=== PATIENT | female | born 1985 | race Caucasian/White ===

== ENCOUNTER → 2016-11-10 | Outpatient (CLI) | payer BC ==
[~2016-11-10] MED LIST: ACET50TA PO; IBUP80TA PO; VITAPRTA PO
[2016-11-10 13:43] LABS: BASO % 0.3 % (0.0-1.0); EOS # 0.1 K/mm3 (0.0-0.50); EOS % 1.8 % (0.0-3.0); LARGE UNSTAINED CELL # 0.1 K/mm3 (0.0-0.4); LARGE UNSTAINED CELL % 1.1 % (0.0-4.0); LYMPH # 1.3 K/mm3 (1.5-6.5); LYMPH % 18.5 % (24.0-44.0); MEAN CORPUSCULAR HEMOGLOBIN 28.6 pg (27.0-33.0); MEAN CORPUSCULAR HGB CONC 33.7 g/dl (32.0-36.5); MONO # 0.2 K/mm3 (0.0-0.8); MONO % 2.5 % (0.0-5.0); NEUTROPHILS # 5.4 K/mm3 (1.8-7.7); NEUTROPHILS % 75.8 % (36.0-66.0); PLATELET COUNT, AUTOMATED 243 k/mm3 (150-450); RED CELL DISTRIBUTION WIDTH 13.1 % (11.5-14.5); WHITE BLOOD COUNT 7.1 K/mm3 (4.0-10.0)
[2016-11-10 13:45] LABS: CONTROL LINE INT CTR LINE PRESENT; HIV SCRN NEGATIVE (NEGATIVE); HIV SCRN1 NEGATIVE (NEGATIVE)
[2016-11-11 10:27] LABS: HBsAg Prenatal NEGATIVE (NEGATIVE)
== END ==
LOC: M LAB 11:53
PROVIDERS: ATTEND Advanced Practice Midwife
DX: Z34.81 Encounter for supervision of other normal pregnancy, first trimester (principal)

== ENCOUNTER → 2017-01-30 | Outpatient (CLI) | payer BC ==
--- NOTE | 2017-01-31 03:21 | REP ---
Clinical: Anatomical evaluation. Comparison: None . Findings: Examination demonstrates a single live intrauterine in breech presentation. motion is identified by technologist. Placenta is noted anteriorly and grade zero without evidence for placenta previa or abruption. Amniotic fluid volume is normal. Cervix measures 3.4 cm in length and appears closed. No evidence for nuchal cord. Gestational age by LMP 21 weeks 2-day with LINDA date 06/10/2017 . Gestational age by current measurements 21 weeks 4-day with LINDA is 06/08/2017 . FHR equals 150 beats per minute. BPD 5.1 cm 21 weeks 2 days HC 18.1 cm 21 weeks 2 days AC 17.9 cm 22 weeks 6 days FL 3.8 cm 22 weeks 2 days HL 3.8 cm 22 weeks 1 day HC/AC ratio 1.06 Estimated weight 501 grams ( 85th percentile). Anatomical assessment demonstrates normal structures including cranium, choroid plexus, cavum, cerebellum/posterior fossa, facial features, lungs, four-chamber heart/ventricular outflow tracts, diaphragm, stomach, cord insertion/three-vessel cord, kidneys/bladder, spine, and extremities. Impression: Single live intrauterine in breech presentation demonstrating appropriate interval growth. Anatomical assessment is complete and normal. Signed by Connor Batista MD 01/31/2017 03:13 A
== END ==
LOC: M SMT 10:58
PROVIDERS: ATTEND Obstetrics & Gynecology
DX: Z36 Encounter for antenatal screening of mother (principal); Z3A.21 21 weeks gestation of pregnancy

== ENCOUNTER → 2017-03-20 | Outpatient (CLI) | payer BC ==
[2017-03-20 13:47] LABS: BASO % 0.3 % (0.0-1.0); EOS # 0.2 K/mm3 (0.0-0.50); EOS % 2.6 % (0.0-3.0); LARGE UNSTAINED CELL # 0.1 K/mm3 (0.0-0.4); LYMPH # 1.3 K/mm3 (1.5-6.5); LYMPH % 18.5 % (24.0-44.0); MEAN CORPUSCULAR HEMOGLOBIN 28.6 pg (27.0-33.0); MEAN CORPUSCULAR HGB CONC 33.9 g/dl (32.0-36.5); MEAN CORPUSCULAR VOLUME 84.1 fl (80.0-96.0); MONO # 0.3 K/mm3 (0.0-0.8); NEUTROPHILS # 4.9 K/mm3 (1.8-7.7); NEUTROPHILS % 73.6 % (36.0-66.0); PLATELET COUNT, AUTOMATED 261 k/mm3 (150-450); RED CELL DISTRIBUTION WIDTH 13.2 % (11.5-14.5); WHITE BLOOD COUNT 6.6 K/mm3 (4.0-10.0)
== END ==
LOC: M SMT 09:25
PROVIDERS: ATTEND Advanced Practice Midwife
DX: Z34.83 Encounter for supervision of other normal pregnancy, third trimester (principal)

== ENCOUNTER → 2017-05-16 | Outpatient (REF) | payer BC | LOC: M LAB REF 13:00 | PROVIDERS: ATTEND Obstetrics & Gynecology | DX: Z34.83 Encounter for supervision of other normal pregnancy, third trimester (principal) ==

== ENCOUNTER 2017-06-10 00:22 | Inpatient (IN) | payer BC ==
[~2017-06-10] VITALS: Ht 162.6 cm; Wt 72.0 kg
[2017-06-10] MEDS ORDERED: LR 1,000 ML IV SCH (00:42)
[2017-06-10] MEDS ORDERED: PENICILLIN G POTASSIUM IV 5 MU in D5W MINI-BAG PLUS 100 ML IV STA (00:42)
[2017-06-10] MEDS ORDERED: LACTATED RINGER'S 1000 ML IV STA (00:42)
[2017-06-10 01:10] LABS: MEAN CORPUSCULAR HEMOGLOBIN 24.3 pg (27.0-33.0); MEAN CORPUSCULAR HGB CONC 32.8 g/dl (32.0-36.5); MEAN CORPUSCULAR VOLUME 74.1 fl (80.0-96.0); RED CELL DISTRIBUTION WIDTH 14.2 % (11.5-14.5)
[2017-06-10] MEDS ORDERED: FENTANYL 2MCG/ML ROPIVACAINE 0.2% IN 0.9% NACL 200ML IVBAG As Ordered ONE (01:29)
[2017-06-10] MEDS ORDERED: REFRIGERATOR IV KEYS XX PRN (01:50)
[2017-06-10] MEDS ORDERED: EPIDURAL/PCA KEYS XX PRN (01:50)
[2017-06-10] MEDS ORDERED: diphenhydrAMINE INJ 50MG/ML VIAL (J1200) IV PRN (01:50)
[2017-06-10] MEDS ORDERED: EPIDURAL COMMENT XX SCH (01:50)
[2017-06-10] MEDS ORDERED: ePHEDrine SULFATE 25 MG/5 ML(5MG/ML) SYRINGE IV PRN (01:50)
[2017-06-10] MEDS ORDERED: ONDANSETRON 4MG/2ML VIAL (J2405) IV PRN (01:50)
[2017-06-10] MEDS ORDERED: FENTANYL/ROPIVACAINE/NACL BAG 200 ML EPIDURAL SCH (01:50)
[2017-06-10] MEDS ORDERED: LACTATED RINGER'S 1000 ML IV PRN (01:50)
[2017-06-10] MEDS ORDERED: NALOXONE INJ 0.4 MG/1 ML VIAL (J2310) IV PRN (01:50)
--- NOTE | 2017-06-10 03:28 | HPE ---
DATE OF ADMISSION: 06/10/2017 31-year-old 3, para 2-0-0-2, estimated date of delivery 06/09/2017, presents at 40 weeks 1 day with reports of contractions through the day, stronger tonight. Reports light bloody show. Denies loss of fluid. Fetus is active. Last normal menstrual period 09/02/2016, for estimated due date (LINDA) 06/09/2017. Sonogram at 11 weeks confirmed her date. Anatomy scan within normal limits. Appropriate care. OBSTETRICAL HISTORY: 1. August 2013: Normal spontaneous vaginal viable female 39 weeks 8 pounds 12 ounces, 3-hour labor. 2. June 2015: Normal spontaneous vaginal viable male 40 weeks 9 pounds 8 ounces, 3-hour labor. ALLERGIES: No known drug allergies. MEDICAL-SURGICAL HISTORY: Noncontributory. FAMILY HISTORY: Hypertension. SOCIAL HISTORY: . Father of the baby present and supportive. Denies tobacco, alcohol, drugs or abuse. OBJECTIVE: Prepregnancy weight 130, total weight gain 35 pounds. O positive, antibody negative, rubella immune, VDRL, hepatitis B, hepatitis C, HIV, gonorrhea, Chlamydia all negative. Declined genetic screening. 1-hour glucose 97 and group B Streptococcus is positive. Vital signs are stable. No apparent distress. Heart rate is regular. Respirations are easy. Abdomen is soft, gravid, longitudinal lie. Contractions 2-4 minutes apart times 60 seconds and moderate, heart 145, moderate variability with accelerations. Sterile vaginal exam 7 cm, 100% and zero station, cephalic presentation. ASSESSMENT: Multiparous at term, active labor, category one tracing and a history of rapid labor. PLAN: Admit. Group B Streptococcus prophylaxis. Anticipate normal spontaneous vaginal .
[2017-06-10] MEDS ORDERED: OXYTOCIN 30 UNITS IN 0.9% NaCl 500ML IV BAG (J2590) As Ordered ONE (03:34)
[2017-06-10] MEDS ORDERED: OXYTOCIN DRIP 30 UNITS in APPROPRIATE DILUENT 1 EA IV SCH (04:10)
[2017-06-10] MEDS ORDERED: IBUPROFEN 800 MG TAB PO PRN (04:15)
[2017-06-10] MEDS ORDERED: DIBUCAINE 1% OINTMENT 30GM TOP PRN (04:15)
[2017-06-10] MEDS ORDERED: MEASLES,MUMPS,RUBELLA VACCINE INJ (MMR-II) (90707) SC SCH (04:15)
[2017-06-10] MEDS ORDERED: DOCUSATE SODIUM 100 MG CAP PO PRN (04:15)
[2017-06-10] MEDS ORDERED: ACETAMINOPHEN 500 MG TAB PO PRN (04:15)
[2017-06-10] MEDS ORDERED: RHOGAM 300 MCG (1500 IU) INJ (J2790) IM SCH (04:15)
[2017-06-10] MEDS ORDERED: METHYLERGONOVINE MALEATE 0.2 MG TAB PO PRN (04:15)
[2017-06-10] MEDS ORDERED: MOM 30ML SUSPENSION UDC PO PRN (04:15)
--- NOTE | 2017-06-10 04:29 | DN ---
DATE OF SERVICE: 06/10/2017 Onset of spontaneous labor 2200. Utilized epidural for labor coping. Artificial rupture of membranes, light meconium stained fluid 0243. Fully dilated at 12/29/2016. Viable female delivered left occiput anterior (TIM) with ease at 0343. Spontaneous respirations. Transitioned on maternal abdomen. Cord doubly clamped and cut once pulsations ceased. scores 8 and 9. Placenta Parra intact with three-vessel cord and trailing membranes at 0351. Fundus firmed with massage and intravenous (IV) Pitocin bolus. Estimated blood loss 100 mL. Perineum, vagina and cervix intact. weight 3980 grams, 8 pounds 12 ounces. Sponge, sharp and instrument count correct. Delivery attended by Delphine Alanis, student nurse airport refueling handler and myself.
[2017-06-10] MEDS ORDERED: PENICILLIN G POTASSIUM IV 2.5 MU in D5W 100 ML IV SCH (05:00)
[2017-06-10 08:20] VITALS: BP 116/60
[2017-06-10] MEDS: PRENATAL VITAMINS CHEWABLE TABLET PO SCH (09:24)
[2017-06-10 18:00] VITALS: BP 113/62
[2017-06-11 06:35] VITALS: BP 94/50
[2017-06-11] MEDS: PRENATAL VITAMINS CHEWABLE TABLET PO SCH (09:03)
[2017-06-11 18:00] VITALS: BP 116/72
[2017-06-12 06:15] VITALS: BP 115/65
[2017-06-12] MEDS: PRENATAL VITAMINS CHEWABLE TABLET PO SCH (08:21)
== END 2017-06-12 13:00 | disposition home or self-care (01) | DRG 560 ==
LOC: M LDO 00:22 → M LDI 00:46 → M OBS 07:21
PROVIDERS: ADMIT Advanced Practice Midwife; ATTEND Advanced Practice Midwife
PROC: 10E0XZZ Delivery of Products of Conception, External Approach (ICD-10-PCS; principal; 2017-06-10)
DX: O48.0 Post-term pregnancy (principal); Z37.0 Single live birth; Z3A.40 40 weeks gestation of pregnancy

== ENCOUNTER → 2018-01-15 | Outpatient (REF) | payer BC | LOC: M LAB REF 17:25 | DX: Z01.419 Encounter for gynecological examination (general) (routine) without abnormal findings (principal); Z11.51 Encounter for screening for human papillomavirus (HPV) | CPT/HCPCS: G0123 ==

== ENCOUNTER → 2020-03-30 | Outpatient (REF) | payer OTHER ==
[~2020-03-30] MED LIST changes: -ACET50TA PO; +MAPA500T2 PO
[2020-03-30 15:57] LABS: HEMATOCRIT 38.7 % (36.0-47.0); HEMOGLOBIN 13.6 g/dl (12.0-15.5); MEAN CORPUSCULAR HEMOGLOBIN 30.4 pg (27.0-33.0); MEAN CORPUSCULAR HGB CONC 35.1 g/dl (32.0-36.5); MEAN CORPUSCULAR VOLUME 86.4 fl (80.0-96.0); PLATELET COUNT, AUTOMATED 215 10^3/uL (150-450); RED BLOOD COUNT 4.48 10^6/uL (4.00-5.40); WHITE BLOOD COUNT 6.9 10^3/uL (4.0-10.0)
[2020-03-30 16:44] LABS: HEPATITIS C VIRUS ABY INDEX 0.3 INDEX (<0.8); HIV 1&2 SCREEN CENTAUR NEGATIVE (NEGATIVE)
[2020-03-30 17:24] LABS: CHLAMYDIA DNA AMPLIFICATION NEGATIVE (NEGATIVE); GC DNA AMPLIFICATION NEGATIVE (NEGATIVE)
== END ==
LOC: M PLALAB 13:39
PROVIDERS: ATTEND Obstetrics & Gynecology
DX: Z3A.10 10 weeks gestation of pregnancy (principal)

== ENCOUNTER → 2020-04-10 | Outpatient (REF) | payer OTHER | LOC: M SFHCWAGY 17:18 | PROVIDERS: ATTEND Advanced Practice Midwife | DX: Z34.82 Encounter for supervision of other normal pregnancy, second trimester (principal) ==

== ENCOUNTER → 2020-05-22 | Outpatient (CLI) | payer OTHER ==
--- NOTE | 2020-06-26 09:53 | REP ---
OBSTETRIC ULTRASOUND Delay in reporting results from hospital computer system malfunction from malware/ ransomware. REASON FOR EXAM: anatomy. FINDINGS: There is a single intrauterine gestation in a transverse lie with head to the maternal left. The placenta is posterior, grade 0 without previa and without abruptio. heart rate is 149 beats per minute. Subjectively the amniotic fluid volume is normal. The cervix measures 3.2 cm in length. The composite ultrasound gestational age is 21 weeks 6 days. Estimated weight is 481 grams. This is the 95th percentile. The following anatomic structures are identified and are unremarkable: Cisterna magna, cavum septum pellucidum, thalami, stomach, kidneys, four chamber view of the heart, cardiac right and left ventricular outflow tracts, three- vessel cord, cord insertion, nuchal cord, upper and lower extremities, and face and upper lip. Suboptimally demonstrated is the spine. A follow-up study of the spine might be considered. Otherwise, there are no anomalies. [facility]ARD
== END ==
LOC: M WHC 08:56
PROVIDERS: ATTEND Advanced Practice Midwife
DX: Z34.82 Encounter for supervision of other normal pregnancy, second trimester (principal)

== ENCOUNTER → 2020-06-19 | Outpatient (CLI) | payer OTHER ==
--- NOTE | 2020-07-02 11:47 | REP ---
FOLLOW-UP OBSTETRICAL ULTRASOUND CLINICAL: Anatomical evaluation. COMPARISON: 05/22/2020. FINDINGS: Ultrasound exam demonstrates a single intrauterine gestation in transverse lie with head to maternal left. Placenta noted posteriorly and grade 1 without placenta previa or abruption. Amniotic fluid volume is normal. Cervix measures 3.6 cm in length and appears closed. Gestational age by last menstrual period (LMP) 25 weeks 0 days with estimated date of delivery 10/02/2020. Gestational age by current measurements 26 weeks 2 days with estimated date of delivery 09/23/2020. heart rate 155 beats per minute. Estimated weight 970 grams (71st percentile based on age by LMP). Anatomical assessment demonstrates normal facial features, four chamber heart/ventricular outflow tracts, stomach, bladder, and spine. IMPRESSION: Single live intrauterine in transverse lie demonstrating appropriate estimated weight and growth. In conjunction with prior examination, anatomical assessment is complete and normal. No gross abnormalities are identified. [facility]
== END ==
LOC: M WHC 08:31
PROVIDERS: ATTEND Advanced Practice Midwife
DX: Z34.82 Encounter for supervision of other normal pregnancy, second trimester (principal); Z3A.26 26 weeks gestation of pregnancy

== ENCOUNTER → 2020-07-17 | Outpatient (CLI) | payer OTHER ==
[2020-07-17 14:32] LABS: BASO % 0.5 % (0.0-1.0); EOS # 0.1 10^3/uL (0.0-0.5); EOS % 1.7 % (0.0-3.0); HEMATOCRIT 36.2 % (36.0-47.0); HEMOGLOBIN 12.1 g/dl (12.0-15.5); LYMPH # 1.4 10^3/uL (1.5-5.0); LYMPH % 16.9 % (24.0-44.0); MEAN CORPUSCULAR HEMOGLOBIN 29.5 pg (27.0-33.0); MEAN CORPUSCULAR HGB CONC 33.4 g/dl (32.0-36.5); MEAN CORPUSCULAR VOLUME 88.3 fl (80.0-96.0); MONO # 0.5 10^3/uL (0.0-0.8); MONO % 5.7 % (0.0-5.0); NEUTROPHILS # 6.1 10^3/uL (1.5-8.5); NEUTROPHILS % 73.7 % (36.0-66.0); PLATELET COUNT, AUTOMATED 244 10^3/uL (150-450); WHITE BLOOD COUNT 8.3 10^3/uL (4.0-10.0)
== END ==
LOC: M PLALAB 09:00
PROVIDERS: ATTEND Advanced Practice Midwife
DX: Z34.82 Encounter for supervision of other normal pregnancy, second trimester (principal); Z36.89 Encounter for other specified antenatal screening

== ENCOUNTER → 2020-09-04 | Outpatient (REF) | payer OTHER | LOC: M SFHCWAGY 13:58 | PROVIDERS: ATTEND Advanced Practice Midwife | DX: Z34.83 Encounter for supervision of other normal pregnancy, third trimester (principal) ==

== ENCOUNTER 2020-10-05 19:45 | Inpatient (IN) | payer OTHER ==
[2020-10-05] VITALS (8 sets, daily range): BP systolic 102–137; BP diastolic 58–69
[~2020-10-05] VITALS: Ht 162.6 cm; Wt 62.0 kg
--- NOTE | 2020-10-05 20:30 | HPEPDOC ---
Obstetrical History & Physical General Date of Admission Oct 05, 2020 at 19:51 Primary Care Physician: MAX RAZA CNM History of Present Illness Marzena is a 35 y/o at 40.2weeks by LMP on 12/27/19, LINDA 10/02/2020. Care was started at [facility] in the first trimester, and her was uncomplicated. Presented to Labor and Delivery, SROM at 1930 with clear fluid, moderate amount of bloody show and fully dilated. Reports labor started at 1900. She pushed effectively and infant was born, please see delivery record for more details. Chief Complaint: Active Labor Information Provided By: Patient Age: 35 : 4 Term: 3 Pre-term: 0 Abortions: 0 Livin Care Care: Good Care Dating Final EDC: Oct 02, 2020 Final EDC by: LMP LMP: Dec 27, 2019 Estimated Date of Confinement: Oct 02, 2020 EGA at Admission: 40.3 Antepartum Course Diagnos(e)s None Height (inches): 64 Admission Weight (lbs.): 136 Past Medical History Past Obstetrical History #1: Past Obstetrical History: Primgravida (08/2013) Gestation: 39.4 Type of Delivery: Spontaneous Vaginal Del. (3 hour labor) Sex of : Female (8lb 12oz) Complications: No Past Obstetrical History #2: Past Obstetrical History: Multigravida (06/2015) Gestation: 40.3 Type of Delivery: Spontaneous Vaginal Del. (3 hour labor) Sex of Infant: Male (9lb 8 oz.) Complications: No Past Obstetrical History #3: Past Obstetrical History: Multigravida Date of Delivery: Jun 10, 2017 Gestation: 40.1 Type of Delivery: Spontaneous Vaginal Del. Sex of Infant: Female (8lb 12 oz.) Complications: No TISSUE TECHNICIAN History: No pertinent history Past Medical History Medical History x3 Surgical History: Denies/None Family History Significant Family History: Hypertension (Mother) Social History Marital Status: Family situation: Spouse/partner home (Jama Ruiz) Psychosocial History: No pertinent psych hx * Smoker: non-smoker Alcohol: Denies Drugs: denies Imunizations Tdap status: current (07/17/20) Influenza Status: current (10/16/20) Allergies Coded Allergies: No Known Allergies (Unverified , 06/14/15) Medications Scheduled Multivit/Min/Pren/Fol Ac/Iron ( Vitamin Plus Low Iron) 1 Tab Tab, 1 TAB PO DAILY for NUTRITIONAL SUPPORT Scheduled PRN Acetaminophen (Mapap) 500 Mg Tab, 1,000 MG PO Q6HP PRN for PAIN Ibuprofen (Ibuprofen) 800 Mg Tab, 800 MG PO Q6HP PRN for PAIN Physical Examination Physical Examination GENERAL: Alert and oriented times three. ABDOMEN: Gravid and non-tender to touch. FETUS: Is vertex (VTX) by sterile vaginal examination (SVE). PELVIC: SVE 10/100/+1, strong urge to push, moderate amount of bloody show, grossly ruptured for clear fluid. HEART RATE: Regular rate and rhythm. LUNGS: Clear to auscultation (CTA) bilaterally throughout EXTREMITIES: No edema. No clonus. Deep tendon reflexes (DTRs) + 2. Laboratory Data 24H LABS Laboratory Tests 2 10/05/20 19:55: Serology Scanned Report Hepatitis B Testing Pertinent Laboratoy Data Blood Type: O+ RBC Antibody Screen: Negative HIV: Negative Hepatitis B: Negative Hepatitis C: Negative Rapid Plasma Reagin: Nonreactive Rubella: Immune Chlamydia/Gonorrhea: Negative Group B Streptococcus: Negative Glucose Tolerance Test: 101 Steroid Therapy Steroid Therapy: No Vaginal Examination Dilation: complete Effacement: 100% Station: +1 Cervical Consistency: Soft Cervical Position: Anterior Presentation: Cephalic presentation Assessment Heart Rate (FHR): 135 Variability: Moderate Accelerations: None Tocometer Contractions: Yes Frequency: regular, every 2-2 min. Duration: greater than 60 seconds Strength: palpated as strong, resting tone palp/soft Multi-drug resistant Organism: No history of MDRO Assessment/Plan Assessment IUP at 40.3 weeks Active Labor Precipitous delivery (58min.) Plan Admit and orient to Labor and Delivery. Activity as Tolerated. Diet: Clear liquids, then Regular in period. Group B Streptococcus (GBS) negative. Labs and intravenous (IV) per unit protocol. Pitocin 10mu IM x1 dose . Anticipate normal spontaneous delivery (). C-S as appropriate. MAX RAZA CNM Oct 05, 2020 20:30
--- NOTE | 2020-10-05 20:44 | DNPDOC ---
[facility] Delivery Note Delivery Note DATE OF DELIVERY: 10/05/19 @ 1953 PREDELIVERY DIAGNOSIS: 40-3/7 weeks' gestation and active labor. POST DELIVERY DIAGNOSIS: Delivered. PROCEDURE: Spontaneous vaginal delivery. SUPERVISOR CHANNEL PROCESS: Max Higginbotham CNM, CLIFF and DARLYN Rivas ANESTHESIA: None. ESTIMATED BLOOD LOSS: 150 mL. FINDINGS: 9 pound 10 ounce, 4360g Female , Score 9/9, macrosomia, precipitous labor (58 minutes) DELIVERY SUMMARY: Patient is a 35-year-old 4 now para 4-0-0-4 who was admitted to labor and delivery for active in labor and found to be fully dilated. Reports labor started at 1900, SROM at 1930 clear fluid. Patient pushed effectively and head delivered TIM with restitution to LOT. Anterior shoulder and corpus delivered immediately without difficulty. Infant placed on maternal abdomen, vigorous and pink. Cord clamped x2 and cut by FOB after 2 min. of life. Cord blood collected. Placenta delivered intact via Parra mechanism at 1957. Fundal massage and 10units Pitocin IM given. Fundus firmed, flow heavy, clots removed from lower uterine segment and bleeding slowed to minimal flow. Fundus firm at U-1. Vagina, perineum, and cervix examined and intact. Sponges counted and correct. Mother plans to breastfeed infant. Mother and both in stable condition. MAX HIGGINBOTHAM CNM Oct 05, 2020 20:44
[2020-10-05] MEDS ORDERED: OXYTOCIN INJ 10 UNITS/ML VIAL (J2590) IM ONE (21:15)
[2020-10-05] MEDS ORDERED: IBUPROFEN 600MG TAB PO PRN (21:15)
[2020-10-05] MEDS ORDERED: BENZOCAINE 20% HEMORRHOIDAL OINTMENT 28GM TUBE TOP PRN (21:15)
[2020-10-05] MEDS ORDERED: ACETAMINOPHEN TAB 650MG DOSE (2X325MG) PO PRN (21:15)
[2020-10-05] MEDS ORDERED: ACETAMINOPHEN 500 MG TAB PO PRN (21:15)
[2020-10-05] MEDS ORDERED: METHYLERGONOVINE MALEATE 0.2 MG TAB PO PRN (21:15)
[2020-10-05] MEDS ORDERED: ANUSOL HC CREAM 30GM TOP PRN (21:15)
[2020-10-05] MEDS ORDERED: MEASLES,MUMPS,RUBELLA VACCINE INJ (MMR-II) (90707) SC SCH (21:15)
[2020-10-05] MEDS ORDERED: IBUPROFEN 800 MG TAB PO PRN (21:15)
[2020-10-05] MEDS ORDERED: DOCUSATE SODIUM 100MG CAPSULE PO PRN (21:15)
[2020-10-05] MEDS ORDERED: RHOGAM 300 MCG (1500 IU) INJ (J2790) IM SCH (21:15)
[2020-10-05 21:30] LABS: HEMATOCRIT 36.9 % (36.0-47.0); HEMOGLOBIN 11.6 g/dl (12.0-15.5); MEAN CORPUSCULAR HEMOGLOBIN 24.9 pg (27.0-33.0); MEAN CORPUSCULAR HGB CONC 31.4 g/dl (32.0-36.5); MEAN CORPUSCULAR VOLUME 79.4 fl (80.0-96.0); PLATELET COUNT, AUTOMATED 257 10^3/uL (150-450); RED BLOOD COUNT 4.65 10^6/uL (4.00-5.40); WHITE BLOOD COUNT 12.8 10^3/uL (4.0-10.0)
[2020-10-06 06:00] VITALS: BP 100/56
[2020-10-06] MEDS: PRENATAL VITAMINS CHEWABLE TABLET PO SCH (08:14)
--- NOTE | 2020-10-06 08:22 | IPNPDOC ---
Progress Note Date of Service: Oct 06, 2020 Day#: 1 Progress Note SUBJECT: Marzena is a 35-year-old female who is a who presented to L&D in active labor. She had a precipitous delivery of a living female that weight 9 lbs 10 oz. She has no current complaints. 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 She is ambulating, voiding, and eating without any issues. OBJECTIVE: VITAL SIGNS: Within normal limits, afebrile. Alert and oriented times three. Breath sounds clear to auscultation. Abdomen: Fundus firm at U. Soft, NTTP. Minimal lochia. ASSESSMENT: Day 1 from uncomplicated vaginal delivery. PLAN: 1. Discharge to home today if can go. 2. Tylenol and Motrin for pain. 3. Encourage breast feeding and ambulation. 4. Routine PP visit in 6 weeks in clinic. 5. Discussed return precautions at length including signs of mastitis, hemorrhage, PP depression, DVT/PE, pelvic rest, endometritis, and pain management. VS, I&O, [facility]H, [facility] Vital Signs/I&O Vital Signs Date Time Temp Pulse Resp B/P (MAP) Pulse Ox O2 Delivery O2 Flow Rate FiO2 10/06/20 06:00 97.3 70 16 100/56 (71) 10/05/20 22:15 98 Room Air I&O- Last 24 Hours up to 6 AM0 10/06/20 06:00 Output Total 550 ml Balance -550 ml Laboratory Data 24H LABS Laboratory Tests 2 10/05/20 19:55: Serology Scanned Report Hepatitis B Testing 10/05/20 21:21: Nucleated Red Blood Cells % (auto) 0.0, Syphilis Serology NONREACTIVE CBC/BMP Laboratory Tests 10/05/20 21:21 MAX RAZA CNM Oct 06, 2020 08:22
[2020-10-06 18:00] VITALS: BP 103/57
[2020-10-07 05:51] VITALS: BP 128/70
--- NOTE | 2020-10-07 06:43 | IPNPDOC ---
Progress Note Date of Service: Oct 07, 2020 Day#: 2 Progress Note SUBJECT: Status post . She has been ambulating, voiding spontaneously without issue and tolerating regular diet. Lochia decreasing/minimal. Pain is well-controlled OBJECTIVE: VITAL SIGNS: Within normal limits, afebrile. Alert and oriented times three. ASSESSMENT: Status post uncomplicated spontaneous vaginal delivery. Vitals within normal limits, afebrile, hemodynamically stable with no evidence of infection. PLAN: Discharge to home today. Tylenol and Motrin for pain. Routine instructions/precautions reviewed. Routine PP visit in 6 weeks in clinic. VS, I&O, 24H, Fishbone Vital Signs/I&O Vital Signs Date Time Temp Pulse Resp B/P (MAP) Pulse Ox O2 Delivery O2 Flow Rate FiO2 10/07/20 05:51 98.5 76 17 128/70 (89) 10/05/20 22:15 98 Room Air ELIANA FINLEY DO Oct 07, 2020 06:43
[2020-10-07] MEDS: PRENATAL VITAMINS CHEWABLE TABLET PO SCH (09:30)
== END 2020-10-07 11:55 | disposition home or self-care (01) | DRG 560 ==
LOC: M LDO 19:45 → M LDI 19:51 → M OBS 21:49
PROVIDERS: ADMIT Advanced Practice Midwife; ATTEND Advanced Practice Midwife
PROC: 10E0XZZ Delivery of Products of Conception, External Approach (ICD-10-PCS; principal; 2020-10-05)
DX: O48.0 Post-term pregnancy (principal); O62.3 Precipitate labor; Z37.0 Single live birth; Z3A.40 40 weeks gestation of pregnancy

== ENCOUNTER → 2021-07-13 | Outpatient (REF) | payer BC, OTHER | LOC: M SFHCWAGY 13:26 | PROVIDERS: ATTEND Advanced Practice Midwife | DX: Z12.4 Encounter for screening for malignant neoplasm of cervix (principal) | CPT/HCPCS: 87624; G0123 ==

== ENCOUNTER → 2021-08-10 | Outpatient (REF) | payer BC, OTHER ==
[2021-08-10 19:48] LABS: GC DNA AMPLIFICATION NEGATIVE (NEGATIVE)
== END ==
LOC: M SFHCWAGY 16:48
PROVIDERS: ATTEND Advanced Practice Midwife
DX: Z11.3 Encounter for screening for infections with a predominantly sexual mode of transmission (principal)